=== PATIENT | female | born 1965 | race Caucasian/White ===

== ENCOUNTER 2020-05-16 09:49 | Emergency (ER) | payer MEDICARE, OTHER ==
[~2020-05-16] VITALS: Ht 170.2 cm; Wt 93.9 kg
[~2020-05-16 09:49] MED LIST: AMLODIPINE BESYL5 MG PO; HYDROCHLOROTHIA25 MG PO; KEPPRA500 MG PO; LISINOPRIL20 MG PO; LISINOPRIL40 MG PO; NORCO 5-325 TA1 EACH PO; NORCO 7.5-3251 EACH PO; PLAVIX75 MG PO; VENTOLIN HFA18 GM INH
[2020-05-16] MEDS ORDERED: LEVETIRACETAM500 MG PO (10:03)
--- NOTE | 2020-05-16 23:59 | EKG ---
[facility] [address] [place] [address] Signed Normal sinus rhythm Possible Inferior infarct , age undetermined Abnormal ECG When compared with ECG of 18-APR-2016 08:22, premature atrial complexes are no longer present OK interval has decreased Vent. rate has increased BY 40 BPM QRS duration has decreased ST now depressed in Anterior leads Nonspecific T wave abnormality now evident in Anterior leads Confirmed by GLORIA VICTORIA MD ([id number]) on 05/16/2020 11:58:51 PM Electronically Signed By: GLORIA VICTORIA MD 05/16/20 2359 PATIENT NAME: IRVIN PLAZA Electrocardiogram DATE OF : 63 PHYSICIAN: GLORIA VICTORIA MD REPORT #: [id number] REPORT IS CONFIDENTIAL AND NOT TO BE RELEASED WITHOUT AUTHORIZATION
== END 2020-05-16 16:50 | disposition home or self-care (01) ==
LOC: ED 09:49
DX: R47.01 Aphasia (principal); I10 Essential (primary) hypertension; G40.909 Epilepsy, unspecified, not intractable, without status epilepticus; Z88.8 Allergy status to other drugs, medicaments and biological substances; Z79.899 Other long term (current) drug therapy
CPT/HCPCS: 70450; 70496; 70498; 71045; 80053; 84484; 85025; 85610; 85730; 93005; 93010; 96374; 99285-25; J2405; Q9967

== ENCOUNTER 2020-05-17 10:56 | Emergency (ER) | payer MEDICARE, OTHER ==
[~2020-05-17] VITALS: Ht 170.2 cm; Wt 93.9 kg
[~2020-05-17 10:56] MED LIST changes: +LEVETIRACETAM500 MG PO
--- OUTSIDE RECORDS SUMMARY | 2020-05-17 11:00 | XMS ---
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 [place] VISIT COUNT (12 MO.) 2 [facility] TOTAL 2 NOTE: Visits indicate total known visits. ED/UCC VISIT TRACKING (12 MO.) 05/17/2020 10:57 [facility] TYPE[facility] Emergency COMPLAINT: - ALTERED LOC 05/16/2020 09:49 [facility] [place] TYPE: Emergency COMPLAINT: - POSS STROKE INPATIENT VISIT TRACKING (12 MO.) No inpatient visits to display in this time frame [id number]
--- NOTE | 2020-05-18 00:42 | EKG ---
[facility] [address] [facility] [place] [address] Signed Sinus bradycardia Inferior infarct (cited on or before 16-MAY-2020) Abnormal ECG When compared with ECG of 16-MAY-2020 10:11, No significant change was found Confirmed by GLORIA VICTORIA MD (255) on 05/18/2020 12:42:45 AM Electronically Signed By: GLORIA VICTORIA MD 05/18/20 0042 PATIENT NAME: IRVIN PLAZA MARCUS Electrocardiogram DATE OF : 63 PHYSICIAN: GLORIA VICTORIA MD REPORT #: [id number] REPORT IS CONFIDENTIAL AND NOT TO BE RELEASED WITHOUT AUTHORIZATION
== END 2020-05-17 23:03 | disposition short-term general hospital (02) ==
LOC: ED 10:56
DX: I63.9 Cerebral infarction, unspecified (principal); G93.40 Encephalopathy, unspecified; Z20.828 Contact with and (suspected) exposure to other viral communicable diseases; I10 Essential (primary) hypertension; G40.909 Epilepsy, unspecified, not intractable, without status epilepticus; Z87.891 Personal history of nicotine dependence; Z88.6 Allergy status to analgesic agent; Z79.899 Other long term (current) drug therapy
CPT/HCPCS: 51701; 70551; 71045; 80053; 81001; 84484; 85025; 93005; 93010; 99285-25; C9803; G0480; J2060; U0003

== ENCOUNTER 2020-07-05 10:21 | Emergency (ER) | payer MEDICARE, OTHER ==
[~2020-07-05] VITALS: Ht 170.2 cm; Wt 93.9 kg
== END 2020-07-05 17:35 | disposition home or self-care (01) ==
LOC: ED 10:21
PROC: 0T9B00Z Drainage of Bladder with Drainage Device, Open Approach (ICD-10-PCS; principal; 2020-07-05)
DX: I67.850 Cerebral autosomal dominant arteriopathy with subcortical infarcts and leukoencephalopathy (principal); F91.9 Conduct disorder, unspecified; I10 Essential (primary) hypertension; G40.909 Epilepsy, unspecified, not intractable, without status epilepticus; Z88.6 Allergy status to analgesic agent; Z79.899 Other long term (current) drug therapy; Z79.02 Long term (current) use of antithrombotics/antiplatelets
CPT/HCPCS: 51701; 70450; 80053; 80176; 81001; 84443; 85025; 87077; 87088; 87186; 99285-25

== ENCOUNTER 2023-02-12 15:32 | Emergency (ER) | payer MEDICARE, OTHER ==
[~2023-02-12] VITALS: Ht 170.2 cm; Wt 126.6 kg
--- NOTE | ~2023-02-12 | EKG ---
[facility] [address] [facility] [place], [place] [address] Draft EK completed, results pending confirmation PATIENT NAME: IRVIN PLAZA MARCUS Electrocardiogram DATE OF : 63 PHYSICIAN: PRELIMINARY REPORT #: [id number] REPORT IS CONFIDENTIAL AND NOT TO BE RELEASED WITHOUT AUTHORIZATION
--- OUTSIDE RECORDS SUMMARY | ~2023-02-12 | XMS | Continuity of Care Document ---
Demographics + + + | Address | [address] | | | [place] [address] | + + + | Preferred Language | Unknown | + + + | Marital Status | | + + + | Sikhism Affiliation | Unknown | + + + | Race | White | + + + | Ethnic Group | Not or | + + + Author + + + | Author | [facility] | + + + | Organization | [facility] | + + + | Address | [address] | | | [place] [address] | + + + | Phone | | + + + Care Team Providers + + + + | Care Dowel Pointer Name | Role | Phone | + + + + Unavailable | Unavailable | + + + + Unavailable | Unavailable | + + + + Unavailable | Unavailable | + + + + Allergies and Intolerances + + + + + + | date | description | facility | reaction | severity | + + + + + + | (no date) | Nausea And | [facility] | (no reaction) | (no severity) | | | Vomiting | [facility] | | | | | [facility] | | | | | | | | | + + + + + + | (no date) | ASPIRIN | [facility] | (no reaction) | (no severity) | | | | [facility] | | | | | | [facility] | | | | | | | | | + + + + + + | (no date) | ASPIRIN | [facility] | (no reaction) | (no severity) | | | | [facility] | | | + + + + + + | (no date) | ASPIRIN | [facility] | (no reaction) | (no severity) | | | | [facility] | | | | | | [facility] | | | | | | | | | + + + + + + Encounters No information. Functional Status No information. Immunizations No information. Medications + + + + | date | description | facility | + + + + | 2020-07-06 00:00 | amlodipine 5 mg oral | [facility] | | | tablet | [facility] | + + + + | 2020-09-16 00:00 | amlodipine 5 mg oral | [facility] | | | tablet | [facility] | + + + + | 2020-07-06 00:00 | lisinopril 40 mg oral | [facility] | | | tablet | [facility] | + + + + | 2020-09-16 00:00 | lisinopril 40 mg oral | [facility] | | | tablet | [facility] | + + + + | 2020-05-23 00:00 | atorvastatin 80 mg oral | [facility] | | | tablet | [facility] | + + + + | 2020-05-25 00:00 | aspirin 81 mg delayed | [facility] | | | release oral tablet | [facility] | + + + + | 2020-07-06 00:00 | clopidogrel 75 mg oral | [facility] | | | tablet | [facility] | + + + + | 2020-09-16 00:00 | clopidogrel 75 mg oral | [facility] | | | tablet | [facility] | + + + + | 2020-07-06 00:00 | levetiracetam 500 mg oral | [facility] | | | tablet | [facility] | + + + + | 2020-09-16 00:00 | levetiracetam 500 mg oral | [facility] | | | tablet | [facility] | + + + + Problems + + + + | date | description | facility | + + + + | 2020-05-18 00:00 | multiple lacunar infarcts | [facility] | | | (disorder) | [facility] | + + + + | 2020-05-18 00:00 | past medical history | [facility] | | | | [facility] | + + + + | 2020-05-18 00:00 | disorder of brain | [facility] | | | (disorder) | [facility] | + + + + | 2020-05-18 00:00 | Acute encephalopathy | [facility] | | | | [facility] | + + + + | 2020-05-18 00:00 | Multiple lacunar infarcts | [facility] | | | | [facility] | + + + + | 2020-05-18 00:00 | History of seizures | [facility] | | | | [facility] | + + + + | 2020-05-23 15:29:40 | Cerebral infarction, | [facility] | | | unspecified (HCC) | | + + + + | 2020-05-23 16:39:09 | Cerebral infarction, | [facility] | | | unspecified (HCC) | | + + + + | 2020-05-23 17:52:32 | Cerebral infarction, | [facility] | | | unspecified (HCC) | | + + + + | 2020-05-23 18:20:39 | Cerebral infarction, | [facility] | | | unspecified (HCC) | | + + + + | 2020-05-23 21:24:03 | Cerebral infarction, | [facility] | | | unspecified (HCC) | | + + + + | 2020-05-23 23:35:25 | Cerebral infarction, | [facility] [place] [facility] | | | unspecified (HCC) | | + + + + | 2020-05-24 07:04:53 | Cerebral infarction, | [facility] | | | unspecified (HCC) | | + + + + | 2020-05-24 08:16:56 | Cerebral infarction, | [facility] | | | unspecified (HCC) | | + + + + | 2020-05-24 09:50:14 | Encephalopathy, | [facility] | | | unspecified | | + + + + | 2020-05-24 09:50:14 | 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 | | | | (HCC) | | + + + + | 2020-05-24 09:50:14 | Personal history of other | [facility] | | | specified conditions | | + + + + | 2020-05-24 19:20:53 | Encephalopathy, | [facility] [place] [facility] | | | unspecified | | + + + + | 2020-05-24 19:20:53 | 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 | | | | (HCC) | | + + + + | 2020-05-24 19:20:53 | Personal history of other | [facility] | | | specified conditions | | + + + + | 2020-05-25 07:55:35 | Encephalopathy, | [facility] [place] | | | unspecified | | + + + + | 2020-05-25 07:55:35 | Other cerebral infarction | [facility] [facility] | | | 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 | | | | (HCC) | | + + + + | 2020-05-25 07:55:35 | Personal history of other | [facility] [place] [facility] | | | specified conditions | | + + + + | 2020-05-25 15:12:17 | Encephalopathy, | [facility] [place] [facility] | | | unspecified | | + + + + | 2020-05-25 15:12:17 | Other cerebral infarction | [facility] [place] | | | 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 | | | | (HCC) | | + + + + | 2020-05-25 15:12:17 | Personal history of other | [facility] | | | specified conditions | | + + + + | 2020-05-25 15:33:04 | Encephalopathy, | [facility] [place] | | | unspecified | | + + + + | 2020-05-25 15:33:04 | Other cerebral infarction | [facility] [place] | | | 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 | | | | (HCC) | | + + + + | 2020-05-25 15:33:04 | Personal history of other | [facility] | | | specified conditions | | + + + + | 2020-05-25 16:28:40 | Encephalopathy, | [facility] [place] | | | unspecified | | + + + + | 2020-05-25 16:28:40 | Other cerebral infarction | [facility] [place] [facility] | | | 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 | | | | (HCC) | | + + + + | 2020-05-25 16:28:40 | Personal history of other | [facility] [place] [facility] | | | specified conditions | | + + + + | 2020-05-25 17:07:56 | Encephalopathy, | [facility] [place] [facility] | | | unspecified | | + + + + | 2020-05-25 17:07:56 | Other cerebral infarction | [facility] [facility] | | | 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 Results/Labs +--------+--------+ +---------+--------+---------+ | test | date | facility | value | unit | notes | +--------+--------+ +---------+--------+---------+ + + | Result panel 1 | + + + + +-------+ + + + | RESPIRATORY | 2020-05-23 | [facility] | Nasopharynx | (missing) | (missing) | | VIRUS | 18:44 | | | | | | SOURCE | | | | | | + + +-------+ + + + | RESPIRATORY | 2020-05-23 | [facility] | Nasopharynx | (missing) | (missing) | | VIRUS | 18:44 | | | | | | SOURCE | | | | | | + + +-------+ + + + | INFLUENZA A | 2020-05-23 | [facility] | Not | (missing) | (missing) | | PCR | 18:44 | | Detected | | | + + +-------+ + + + | INFLUENZA B | 2020-05-23 | [facility] | Not | (missing) | (missing) | | PCR | 18:44 | | Detected | | | + + +-------+ + + + | SARS-COV-2, | 2020-05-23 | [facility] | Not | (missing) | (missing) | | AQUILES | 18:44 | | Detected | | | | (COVID-19) | | | | | | | (REF) | | | | | | + + +-------+ + + + | SARS-COV-2, | 2020-05-23 | [facility] | Not | (missing) | (missing) | | AQUILES | 18:44 | | Detected | | | | (COVID-19) | | | | | | | (REF) | | | | | | + + +-------+ + + + | SARS-COV-2 | 2020-05-23 | [facility] | See Comment | (missing) | (missing) | | (COVID-19) | 18:44 | | | | | | QUAL PCR | | | | | | | INTERPRETATI | | | | | | | ON | | | | | | + + +-------+ + + + | SARS-COV-2 | 2020-05-23 | [facility] | See Comment | (missing) | (missing) | | (COVID-19) | 18:44 | | | | | | QUAL PCR | | | | | | | INTERPRETATI | | | | | | | ON | | | | | | + + +-------+ + + + | [facility] AOE | 2020-05-23 | [facility] | Yes | (missing) | (missing) | | SYMPTOMATIC | 18:44 | | | | | | ([id number]) | | | | | | + + +-------+ + + + | [facility] AOE | 2020-05-23 | [facility] | Yes | (missing) | (missing) | | SYMPTOMATIC | 18:44 | | | | | | ([id number]) | | | | | | + + +-------+ + + + Social History + + + + | date | description | facility | + + + + | 2020-05-19 00:00 | Never smoker | [facility] | | | | [facility] | + + + + Vital Signs No information."
--- OUTSIDE RECORDS SUMMARY | ~2023-02-12 | XMS | Continuity of Care Document ---
Demographics + + + | Address | [address] | | | [place] [address] | + + + | Preferred Language | Unknown | + + + | Marital Status | | + + + | Christian Affiliation | Unknown | + + + | Race | White | + + + | Ethnic Group | Not or | + + + Author + + + | Author | [facility] | + + + | Organization | [facility] | + + + | Address | [address] | | | [place] [address] | + + + | Phone | | + + + Care Team Providers + + + + | Care Electric Hoist Operator Name | Role | Phone | + [...] | (no date) | Nausea And | [place] | (no reaction) | (no severity) | | | Vomiting | [facility] | | | | | | [facility] | | | | | | | | | + + + + + + | (no date) | ASPIRIN | [place] | (no reaction) | (no severity) | [...] + | (no date) | ASPIRIN | [place] | (no reaction) | (no severity) | [...] 00:00 | amlodipine 5 mg oral | [facility] | | | tablet | [facility] | + + + + | 2020-09-16 00:00 | amlodipine 5 mg oral | [facility] | | | tablet | [facility] | + + + + | 2020-07-06 00:00 | lisinopril 40 mg oral | [facility] | | | tablet | [facility] | + + + + | 2020-09-16 00:00 | lisinopril 40 mg oral | [facility] | | | tablet | [facility] | + + + + | 2020-05-23 00:00 | atorvastatin 80 mg oral | [facility] | | | tablet | [facility] | + + + + | 2020-05-25 00:00 | aspirin 81 mg delayed | [facility] | | | release oral tablet | [facility] | + + + + | 2020-07-06 00:00 | clopidogrel 75 mg oral | [facility] | | | tablet | [facility] | + + + + | 2020-09-16 00:00 | clopidogrel 75 mg oral | [facility] | | | tablet | [facility] | + + + + | 2020-07-06 00:00 | levetiracetam 500 mg oral | [facility] | | | tablet | [facility] | + + + + | 2020-09-16 00:00 | levetiracetam 500 mg oral | [facility] | | | tablet | [facility] | + + + + Problems + + + + | date | description | facility | + + + + | 2020-05-18 00:00 | multiple lacunar infarcts | [facility] | | | (disorder) | [facility] | + + + + | 2020-05-18 00:00 | past medical history | [facility] | | | | [facility] | + + + + | 2020-05-18 00:00 | disorder of brain | [facility] | | | (disorder) | [facility] | + + + + | 2020-05-18 00:00 | Acute encephalopathy | [facility] | | | | [facility] | + + + + | 2020-05-18 00:00 | Multiple lacunar infarcts | [facility] | | | | [facility] | + + + + | 2020-05-18 00:00 | History of seizures | [facility] | | | | [facility] [...] 18:44 | | | | | | ([phone]) | | | | | | + + +-------+ + + + | [facility] AOE | 2020-05-23 | [facility] | Yes | (missing) | (missing) | | SYMPTOMATIC | 18:44 | | | | | | ([id number]) | | | | | | + + +-------+ + + + Social History + + + + | date | description | facility | + + + + | 2020-05-19 00:00 | Never smoker | [facility] | | | | [facility] | + + + + Vital Signs No information."
[2023-02-12] MEDS ORDERED: ATORVASTATIN CA40 MG PO (15:49)
[2023-02-12 16:15] LABS: BASOPHILS 0.5 % (0-2); EOSINOPHILS 6.5 % (0-6); HEMATOCRIT 37.4 % (35.0-50.0); HEMOGLOBIN 12.4 g/dL (12.0-18.0); LYMPHOCYTES 31.9 % (24-44); MCH 28.8 (27-36); MCV 87.1 fl (81-99); MONOCYTES 11.3 % (0-12); NEUTROPHILS 49.8 % (39-80); PLATELET COUNT 184 K/uL (140-440); RDW 14.1 (10.5-15.0)
[2023-02-12 16:43] LABS: ALBUMIN 3.5 g/dL (3.4-5.0); ALBUMIN/GLOBULIN RATIO 1.09 (1.1-2.4); ALCOHOL, MEDICAL <3 ng/dL (<3); ALKALINE PHOSPHATASE 153 U/L (46-116); ALT (SGPT) 34 U/L (14-59); ANION GAP 11.3 (7-21); AST (SGOT) 36 U/L (15-37); BILIRUBIN, TOTAL 0.4 ng/dL (0.2-1.0); BUN/CREATININE RATIO 17.11 (6.0-28.6); CALCIUM 8.7 mg/dL (8.5-10.1); CARBON DIOXIDE 26 mmol/L (21-32); CHLORIDE 107 mmol/L (98-107); CREATININE, SERUM 1.11 mg/dL (0.55-1.02); GLOMERULAR FILTRATION RATE,EST 58 mL/min (>60); POTASSIUM 4.3 mmol/L (3.5-5.1); PROTEIN, TOTAL 6.7 g/dL (6.4-8.2); UREA NITROGEN 19 mg/dL (7-18)
[2023-02-12 17:23] LABS: BILIRUBIN, URINE NEGATIVE (negative); BLOOD/HGB, URINE NEGATIVE (Negative); KETONE, URINE NEGATIVE (Negative); LEUK ESTERASE, URINE SMALL (negative); NITRITE, URINE NEGATIVE (negative); PH, URINE 5.5 (5-7)
[2023-02-12 17:26] LABS: AMPHETAMINES, UR NEGATIVE (NEGATIVE); BARBITURATES, UR NEGATIVE (NEGATIVE); BENZODIAZEPINES, UR NEGATIVE (NEGATIVE); BUPRENORPHINE,UR NEGATIVE (NEGATIVE); COCAINE, UR NEGATIVE (NEGATIVE); MARIJUANA (THC), UR NEGATIVE (NEGATIVE); MDMA, UR NEGATIVE (NEGATIVE); METHADONE, UR NEGATIVE (NEGATIVE); METHAMPHETAMINE, UR NEGATIVE (NEGATIVE); OPIATES, UR NEGATIVE (NEGATIVE); OXYCODONE, UR NEGATIVE (NEGATIVE); PHENCYCLIDINE, UR NEGATIVE (NEGATIVE); TRICYCLIC ANTIDEPRESSANT, UR NEGATIVE (NEGATIVE)
[2023-02-12 17:30] LABS: BACTERIA, URINE 2+ /hpf (negative); CASTS, URINE NONE SEEN \\lpf; COLLECTION TYPE, URINE CLEAN CATCH; CRYSTALS, URINE NONE SEEN (0-1+); EPITHELIAL CELLS, URINE SQUAMOUS 3+ /lpf (0-1+); REFLEX CULTURE, URINE No (No)
[2023-02-12] MEDS ORDERED: CEPHALEXIN500 M1 PO (17:49)
[2023-02-12 18:06] VITALS: BP 143/96
== END 2023-02-12 18:06 | disposition home or self-care (01) ==
LOC: ED 15:32
PROVIDERS: Emergency Medicine
DX: R41.82 Altered mental status, unspecified (principal); N39.0 Urinary tract infection, site not specified; I10 Essential (primary) hypertension; Z86.73 Personal history of transient ischemic attack (TIA), and cerebral infarction without residual deficits; Z88.8 Allergy status to other drugs, medicaments and biological substances; Z79.899 Other long term (current) drug therapy
CPT/HCPCS: 36415; 70450; 71045; 80053; 81001; 84484; 85025; 93005; 93010; G0480

== ENCOUNTER 2023-07-25 00:35 | Emergency (ER) | payer MEDICARE, OTHER ==
[~2023-07-25] VITALS: Ht 170.2 cm; Wt 125.7 kg
[~2023-07-25 00:35] MED LIST changes: +ATORVASTATIN CA40 MG PO; +CEPHALEXIN500 M1 PO; +PREDNISONE20 MG PO
--- OUTSIDE RECORDS SUMMARY | 2023-07-25 00:38 | XMS ---
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 E.[place] VISIT COUNT (12 MO.) 3 [facility] TOTAL 3 NOTE: Visits indicate total known visits. ED/UCC VISIT TRACKING (12 MO.) 07/25/2023 00:35 [facility] Emergency COMPLAINT: - POSS STROKE 07/21/2023 11:38 [facility] TYPE[facility] Emergency COMPLAINT: - RASH DIAGNOSES: - Allergy status to other drugs, medicaments and biological substances - Dermatitis, unspecified - Epilepsy, unspecified, not intractable, without status epilepticus - Essential (primary) hypertension - Other technical artist (current) drug therapy - Rash and other nonspecific skin eruption 02/12/2023 15:[address] [facility] [place] TYPE: Emergency COMPLAINT: - CONFUSION DIAGNOSES: - Allergy status to other drugs, medicaments and biological substances - Altered mental status, unspecified - Essential (primary) hypertension - Other long-term (current) drug therapy - Personal history of transient ischemic attack (TIA), and cerebral infarction without residual deficits - Transient alteration of awareness - Urinary tract infection, site not specified INPATIENT VISIT TRACKING (12 MO.) No inpatient visits to display in this time frame [id number]
[2023-07-25 00:44] LABS: BASOPHILS 0.3 % (0-2); HEMATOCRIT 38.7 % (35.0-50.0); LYMPHOCYTES 27.5 % (24-44); MCH 29.6 (27-36); MCHC 33.7 g/dl (30-36); MCV 87.9 fl (81-99); NEUTROPHILS 65.2 % (39-80); PLATELET COUNT 190 K/uL (140-440)
[2023-07-25 01:09] LABS: ALBUMIN 3.6 g/dL (3.4-5.0); ALBUMIN/GLOBULIN RATIO 1.09 (1.1-2.4); ALCOHOL, MEDICAL <3 ng/dL (<3); ALKALINE PHOSPHATASE 159 U/L (46-116); ALT (SGPT) 25 U/L (14-59); ANION GAP 12.2 (7-21); AST (SGOT) 20 U/L (15-37); BILIRUBIN, TOTAL 0.3 ng/dL (0.2-1.0); BUN/CREATININE RATIO 23.07 (6.0-28.6); CALCIUM 9.4 mg/dL (8.5-10.1); CARBON DIOXIDE 26 mmol/L (21-32); CHLORIDE 107 mmol/L (98-107); CREATININE, SERUM 0.91 mg/dL (0.55-1.02); GLOMERULAR FILTRATION RATE,EST 73 mL/min (>60); POTASSIUM 4.2 mmol/L (3.5-5.1); PROTEIN, TOTAL 6.9 g/dL (6.4-8.2); UREA NITROGEN 21 mg/dL (7-18)
[2023-07-25 01:34] LABS: BILIRUBIN, URINE NEGATIVE (negative); BLOOD/HGB, URINE NEGATIVE (Negative); KETONE, URINE NEGATIVE (Negative); LEUK ESTERASE, URINE NEGATIVE (negative); NITRITE, URINE NEGATIVE (negative)
[2023-07-25 01:49] LABS: AMPHETAMINES, URINE NEGATIVE (NEGATIVE); BARBITURATES, URINE NEGATIVE (NEGATIVE); BENZODIAZEPINE, URINE NEGATIVE (NEGATIVE); BUPRENORPHINE, URINE NEGATIVE (NEGATIVE); CANNABINOID, URINE NEGATIVE (NEGATIVE); COCAINE, URINE NEGATIVE (NEGATIVE); ECSTASY, URINE NEGATIVE (NEGATIVE); FENTANYL, URINE NEGATIVE (NEGATIVE); METHADONE, URINE NEGATIVE (NEGATIVE); OPIATES, URINE NEGATIVE (NEGATIVE); OXYCODONE, URINE NEGATIVE (NEGATIVE); PHENCYCLIDINE, URINE NEGATIVE (NEGATIVE)
[2023-07-25 03:49] LABS: INFLUENZA B NAA NEGATIVE (NEGATIVE); RESPIRATORY SYNCYTIAL VIR NAA NEGATIVE (NEGATIVE)
[2023-07-25 04:27] LABS: HCO3, BLOOD GAS 24.7 mmol/L (22-26); O2 SATURATION, BLOOD GAS 93.6 % (95.0-100.0); OXYGEN RECEIVED, BLOOD GAS 2L; PCO2, BLOOD GAS 35.1 mmHg (35-45); PH, BLOOD GAS 7.46 (7.35-7.45); PO2, BLOOD GAS 66 mmHg (80-100); TOTAL CO2, BLOOD GAS 25.8
[2023-07-25 06:38] LABS: BASE EXCESS, BLOOD GAS -0.6 mmol/L (-2-2); HCO3, BLOOD GAS 24.4 mmol/L (22-26); O2 SATURATION, BLOOD GAS 97.3 % (95.0-100.0); OXYGEN RECEIVED, BLOOD GAS 50%; PCO2, BLOOD GAS 39.4 mmHg (35-45); PO2, BLOOD GAS 96 mmHg (80-100); TOTAL CO2, BLOOD GAS 25.6
[2023-07-25 09:15] VITALS: BP 106/72
--- OUTSIDE RECORDS SUMMARY | 2023-07-25 09:36 | XMS ---
PreManage Notification: IRVIN PLAZA Security Anatomical Embalmer Events No recent Security Events currently on file CRITERIA MET - [facility] - 2 Visits in 30 Days CARE PROVIDERS [place] Certified Midwife/Campus Manager 06/25/2023-Current PHONE: [phone] -[place]- Dentist: Follow Up Specialist [facility] PHONE: [phone] RUFUS DUNCAN [facility] Current PHONE: Unknown Roly has no Care Guidelines for this patient. E.Landy VISIT COUNT (12 MO.) 3 [facility] TOTAL 3 NOTE: Visits indicate total known visits. ED/UCC VISIT TRACKING (12 MO.) 07/25/2023 00:35 [facility] TYPE[facility] Emergency COMPLAINT: - AMS/STROKE 07/21/2023 11:38 [facility] COMPLAINT: - RASH DIAGNOSES: - Allergy status to other drugs, medicaments and biological substances - Dermatitis, unspecified - Epilepsy, unspecified, not intractable, without status epilepticus - Essential (primary) hypertension - Other ocean transportation intermediary (current) drug therapy - Rash and other nonspecific skin eruption 02/12/2023 15:33 [facility] TYPE: Emergency COMPLAINT: - CONFUSION DIAGNOSES: - Allergy status to other drugs, medicaments and biological substances - Altered mental status, unspecified - Essential (primary) hypertension - Other ocean transportation intermediary (current) drug therapy - Personal history of transient ischemic attack (TIA), and cerebral infarction without residual deficits - Transient alteration of awareness - Urinary tract infection, site not specified INPATIENT VISIT TRACKING (12 MO.) 07/25/2023 02:20 [facility] TYPE: Critical Care COMPLAINT: - AMS/STROKE [email or web address]
--- NOTE | 2023-07-25 20:57 | EKG ---
[facility] [address] [place] [address] Signed Sinus rhythm with 1st degree AV block Minimal voltage criteria for LVH, may be normal variant ( Elvis product ) Borderline ECG When compared with ECG of 12-FEB-2023 16:15, No significant change was found Confirmed by Janay Sampson MD () on 07/25/2023 8:56:50 PM Electronically Signed By: JANAY SAMPSON MD 07/25/232056 PATIENT NAME: IRVIN PLAZA Electrocardiogram DATE OF : 63 PHYSICIAN: JANAY SAMPSON MD REPORT #: [id number] REPORT IS CONFIDENTIAL AND NOT TO BE RELEASED WITHOUT AUTHORIZATION
== END 2023-07-25 09:15 | disposition short-term general hospital (02) ==
LOC: ED 00:35 → CCU 02:20 → ED 09:15
PROVIDERS: Internal Medicine
DX: I63.9 Cerebral infarction, unspecified (principal); I67.850 Cerebral autosomal dominant arteriopathy with subcortical infarcts and leukoencephalopathy; G40.409 Other generalized epilepsy and epileptic syndromes, not intractable, without status epilepticus; I10 Essential (primary) hypertension; E78.00 Pure hypercholesterolemia, unspecified; Z11.52 Encounter for screening for COVID-19; Z88.6 Allergy status to analgesic agent; Z79.02 Long term (current) use of antithrombotics/antiplatelets; Z79.899 Other long term (current) drug therapy; Z86.03 Personal history of neoplasm of uncertain behavior
CPT/HCPCS: 31500; 36415; 36600; 70450; 70496; 70498; 71045; 80053; 80307; 81003; 82803; 83605; 84484; 85025; 87502; 93005; 93010; 96375; 99285-25; A9270; G0480; J0295; J0330; J1953; J2060; J2560; J2704; Q9967; U0002

== ENCOUNTER 2024-01-04 11:54 | Emergency (ER) | payer MEDICARE, OTHER ==
[~2024-01-04] VITALS: Ht 170.2 cm; Wt 125.3 kg
[~2024-01-04 11:54] MED LIST changes: +IRBESARTAN300 MG PO; +NORVASC5 MG PO
[2024-01-04] MEDS ORDERED: CARDURA1 MG PO (12:11)
[2024-01-04] MEDS ORDERED: FUROSEMIDE20 MG PO (12:12)
[2024-01-04] MEDS ORDERED: K-TAB ER20 MEQ PO (12:13)
[2024-01-04] MEDS ORDERED: VITAMIN D325 MC2 PO (12:13)
[2024-01-04] MEDS ORDERED: IBLOOD GLUCOSE TEST STRIP 1 EA TEST XX ONE (12:15)
[2024-01-04 12:23] LABS: BASOPHILS 0.7 % (0-2); EOSINOPHILS 6.7 % (0-6); HEMATOCRIT 34.4 % (35.0-50.0); HEMOGLOBIN 11.7 g/dL (12.0-18.0); MCH 29.8 (27-36); MCHC 33.9 g/dl (30-36); NEUTROPHILS 37.6 % (39-80); PLATELET COUNT 160 K/uL (140-440); RBC 3.91 M/ul (4.3-5.7); RDW 13.7 (10.5-15.0)
[2024-01-04 12:37] LABS: ALBUMIN 3.1 g/dL (3.4-5.0); ALBUMIN/GLOBULIN RATIO 1.11 (1.1-2.4); ANION GAP 14.5 (7-21); BILIRUBIN, TOTAL 0.5 ng/dL (0.2-1.0); BUN/CREATININE RATIO 21.42 (6.0-28.6); CALCIUM 7.8 mg/dL (8.5-10.1); CREATININE, SERUM 0.84 mg/dL (0.55-1.02); MAGNESIUM 1.6 mg/dL (1.8-2.4); POTASSIUM 3.5 mmol/L (3.5-5.1); PROTEIN, TOTAL 5.9 g/dL (6.4-8.2)
[2024-01-04] MEDS ORDERED: MAGNESIUM SULFATE 2 GM/50 ML BAG IV ONE (14:15)
[2024-01-04] MEDS ORDERED: SODIUM CHLORIDE 0.9% 1,000 ML IV PRN (14:30)
[2024-01-04 18:29] VITALS: BP 114/76
--- NOTE | 2024-01-04 22:58 | EKG ---
[facility] [address] [place] [address] Signed Sinus bradycardia with 1st degree AV block Otherwise normal ECG When compared with ECG of 06-SEP-2023 19:20, No significant change was found Confirmed by Janay Sampson MD () on 01/04/2024 10:58:00 PM Electronically Signed By: JANAY SAMPSON MD 01/04/24 2258 PATIENT NAME: IRVIN PLAZA MARCUS Electrocardiogram DATE OF : 63 PHYSICIAN: JANAY SAMPSON MD REPORT #: [id number] REPORT IS CONFIDENTIAL AND NOT TO BE RELEASED WITHOUT AUTHORIZATION
== END 2024-01-04 18:31 | disposition home or self-care (01) ==
LOC: ED 11:54
PROVIDERS: Emergency Medicine
DX: D64.9 Anemia, unspecified (principal); E83.42 Hypomagnesemia; I10 Essential (primary) hypertension; Z86.73 Personal history of transient ischemic attack (TIA), and cerebral infarction without residual deficits; Z88.8 Allergy status to other drugs, medicaments and biological substances; Z79.899 Other long term (current) drug therapy
CPT/HCPCS: 36415; 80053; 83735; 84484; 85025; 93005; 93010; 96361; 96365; 99285-25; J3475; J7030